=== PATIENT | male | born 1925 | race Caucasian/White ===

== ENCOUNTER 2016-11-27 14:54 | Inpatient (IN) | payer OTHER ==
[~2016-11-27] VITALS: Ht 180.3 cm; Wt 96.5 kg
[2016-11-27 17:00] LABS: MCH 30.5 PG (29.0-34.0); MCV 92.4 FL (86-99); MEAN PLAT.VOLUME 12.1 uM^3 (9.0-12.4); PLATELET COUNT 109 K/uL (156-360); RBC DIS.WIDTH-CV 14.5 % (11.8-14.6); RBC DIS.WIDTH-SD 49.1 % (39-53); RED BLOOD COUNT 4.33 M/uL (4.00-5.50); WHITE BLOOD COUNT 7.5 K/uL (4.1-10.2)
[2016-11-27 17:09] LABS: CHLORIDE 103 mEq/L (99-109); SODIUM 135 mEq/L (136-147)
[2016-11-27 17:11] LABS: GLUCOSE 154 mg/dL (70-99)
[2016-11-27 17:12] LABS: ANION GAP 9 MEQ/L (2-14)
[2016-11-27 17:15] LABS: GFR ESTIMATE (CALCULATED) > 59 mL/min/; UREA NITROGEN (BUN) 17 mg/dL (9-23)
[2016-11-27 17:20] LABS: TROP-I INTERPRETATION NEGATIVE; TROPONIN-I 0.02 ng/mL (0.0-0.30)
[2016-11-27 18:45] LABS: INFLUENZA A VIRAL ANTIGEN NEGATIVE; INFLUENZA B VIRAL ANTIGEN NEGATIVE
[2016-11-27 20:53] LABS: INTER. NORMALIZED RATIO 1.2; PROTHROMBIN TIME 12.8 SEC (10.2-12.9)
[2016-11-27 20:55] LABS: PTT 32.1 SEC (25-37)
[2016-11-27] MEDS ORDERED: DECADRON4 MG PO (21:49)
[2016-11-27] MEDS ORDERED: REVLIMID15 MG PO (21:50)
[2016-11-27] MEDS ORDERED: AMLODIPINE BESYL5 MG PO (21:51)
[2016-11-27] MEDS ORDERED: TAMSULOSIN HCL0.4 MG PO (21:52)
[2016-11-27] MEDS ORDERED: CLOPIDOGREL75 MG PO (21:52)
[2016-11-27] MEDS ORDERED: ALLOPURINOL100 MG PO (21:53)
[2016-11-27] MEDS ORDERED: ATORVASTATIN CA20 MG PO (21:53)
[2016-11-27] MEDS ORDERED: RELIEF MM (21:54)
[2016-11-27] MEDS ORDERED: FLONASE16 G1 BOTH NARES (21:54)
[2016-11-27] MEDS ORDERED: VELCADE3.5 MG IV (21:55)
[2016-11-28 01:05] LABS: TROP-I INTERPRETATION NEGATIVE; TROPONIN-I 0.03 ng/mL (0.0-0.30)
[2016-11-28 01:15] VITALS: BP 140/92
[2016-11-28 04:15] VITALS: BP 122/68
[2016-11-28 05:54] LABS: MCH 30.4 PG (29.0-34.0); MCHC 32.9 G/DL (30.0-36.0); MCV 92.6 FL (86-99); MEAN PLAT.VOLUME 12.2 uM^3 (9.0-12.4); PLATELET COUNT 84 K/uL (156-360); RBC DIS.WIDTH-CV 14.6 % (11.8-14.6); RBC DIS.WIDTH-SD 49.6 % (39-53); RED BLOOD COUNT 3.78 M/uL (4.00-5.50); WHITE BLOOD COUNT 6.2 K/uL (4.1-10.2)
[2016-11-28 06:09] LABS: ANION GAP 10 MEQ/L (2-14); CHLORIDE 107 MEQ/L (99-109); GFR ESTIMATE (CALCULATED) > 59 mL/min/; POTASSIUM 3.7 MEQ/L (3.7-5.4); SAMPLE HEMOLYSIS CHECK 0; SAMPLE ICTERIC CHECK 0; SAMPLE LIPEMIA CHECK 0; SODIUM 137 MEQ/L (136-147); UREA NITROGEN (BUN) 17 mg/dL (9-23)
[2016-11-28 06:18] LABS: TROP-I INTERPRETATION NEGATIVE; TROPONIN-I 0.06 ng/mL (0.0-0.30)
[2016-11-28 06:20] LABS: GLUCOSE 113 mg/dL (70-99)
[2016-11-28 07:15] VITALS: BP 124/77
[2016-11-28 10:16] LABS: INTER. NORMALIZED RATIO 1.1; PROTHROMBIN TIME 12.5 SEC (10.2-12.9)
[2016-11-28 10:26] LABS: PTT 54.9 SEC (25-37)
[2016-11-28 11:00] VITALS: BP 119/62
[2016-11-28 16:00] VITALS: BP 136/83
[2016-11-28 19:29] LABS: INTER. NORMALIZED RATIO 1.1; PROTHROMBIN TIME 11.9 SEC (10.2-12.9)
[2016-11-28 21:00] VITALS: BP 108/69
[2016-11-29] VITALS (7 sets, daily range): BP systolic 105–121; BP diastolic 54–74
[2016-11-29 05:11] LABS: EOSINOPHIL (%) 0.6 % (0-5); HEMATOCRIT 33.5 % (38.0-50.0); IMMATURE GRANULOCYTE (%) 1.3 % (0.0-0.7); IMMATURE GRANULOCYTE COUNT 0.1 K/uL; INSTRUMENT ABS NEUTROPHIL CT 4.1 K/uL; LYMPHOCYTE COUNT 0.5 K/uL (1.0-2.8); MCH 30.5 PG (29.0-34.0); MCHC 32.8 G/DL (30.0-36.0); MCV 92.8 FL (86-99); MEAN PLAT.VOLUME 11.9 uM^3 (9.0-12.4); MONOCYTE (%) 12.5 % (3-12); MONOCYTE COUNT 0.7 K/uL (0-0.8); NEUTROPHIL (%) 75.9 % (45-76); NEUTROPHIL COUNT 4.1 K/uL (1.8-6.4); PLATELET COUNT 98 K/uL (156-360); RBC DIS.WIDTH-CV 14.7 % (11.8-14.6); RED BLOOD COUNT 3.61 M/uL (4.00-5.50); WHITE BLOOD COUNT 5.4 K/uL (4.1-10.2)
[2016-11-29 05:48] LABS: ALKALINE PHOSPHATASE 46 IU/L (3-129); ANION GAP 9 MEQ/L (2-14); CHLORIDE 110 MEQ/L (99-109); GFR ESTIMATE (CALCULATED) > 59 mL/min/; GLUCOSE 111 mg/dL (70-99); SAMPLE HEMOLYSIS CHECK 0; SAMPLE ICTERIC CHECK 0; SAMPLE LIPEMIA CHECK 0; SODIUM 142 MEQ/L (136-147); UREA NITROGEN (BUN) 17 mg/dL (9-23)
[2016-11-30 05:13] VITALS: BP 97/65
[2016-11-30 05:27] LABS: EOSINOPHIL (%) 6.8 % (0-5); EOSINOPHIL COUNT 0.4 K/uL (0-0.3); IMMATURE GRANULOCYTE (%) 0.7 % (0.0-0.7); LYMPHOCYTE COUNT 0.7 K/uL (1.0-2.8); MCH 29.6 PG (29.0-34.0); MCV 92.3 FL (86-99); MEAN PLAT.VOLUME 11.6 uM^3 (9.0-12.4); MONOCYTE (%) 11.7 % (3-12); MONOCYTE COUNT 0.7 K/uL (0-0.8); NEUTROPHIL (%) 69.1 % (45-76); PLATELET COUNT 123 K/uL (156-360); RBC DIS.WIDTH-CV 14.9 % (11.8-14.6); RBC DIS.WIDTH-SD 51.4 % (39-53); RED BLOOD COUNT 3.79 M/uL (4.00-5.50); WHITE BLOOD COUNT 5.7 K/uL (4.1-10.2)
[2016-11-30 05:48] LABS: ALKALINE PHOSPHATASE 51 IU/L (3-129); ANION GAP 8 MEQ/L (2-14); CHLORIDE 107 MEQ/L (99-109); GFR ESTIMATE (CALCULATED) > 59 mL/min/; GLUCOSE 93 mg/dL (70-99); POTASSIUM 3.6 MEQ/L (3.7-5.4); SAMPLE HEMOLYSIS CHECK 0; SAMPLE ICTERIC CHECK 0; SAMPLE LIPEMIA CHECK 0; SODIUM 139 MEQ/L (136-147); UREA NITROGEN (BUN) 15 mg/dL (9-23)
[2016-11-30 07:54] VITALS: BP 120/70
[2016-11-30 08:09] VITALS: BP 109/58
[2016-11-30 11:35] VITALS: BP 129/68
[2016-11-30 12:19] VITALS: BP 167/78
[2016-11-30] MEDS ORDERED: XARELTO15 MG PO (12:35)
[2016-11-30] MEDS ORDERED: ADVAIR HFA120 INHALA IH (12:35)
[2016-11-30] MEDS ORDERED: VENTOLIN HFA18 GM IH (12:35)
[2016-11-30] MEDS ORDERED: TOPROL XL25 MG PO (12:35)
[2016-11-30] MEDS ORDERED: XARELTO20 MG PO (12:35)
[2016-11-30] MEDS ORDERED: CARDIZEM CD,CA240 MG PO (12:35)
== END 2016-11-30 16:15 | disposition home or self-care (01) | DRG 176 ==
LOC: EME 14:54 → 4EAST 22:26 → EDOF 22:26 → ENRESERV 22:27 → EDOF 23:10 → ENRESERV 23:48 → 4EAST 11-28 01:12
PROVIDERS: Emergency Medicine; Hospitalist
DX: I26.99 Other pulmonary embolism without acute cor pulmonale (principal); I82.542 Chronic embolism and thrombosis of left tibial vein; C34.12 Malignant neoplasm of upper lobe, left bronchus or lung; C90.00 Multiple myeloma not having achieved remission; J20.9 Acute bronchitis, unspecified; J21.9 Acute bronchiolitis, unspecified; T17.890A Other foreign object in other parts of respiratory tract causing asphyxiation, initial encounter; I48.91 Unspecified atrial fibrillation; I48.92 Unspecified atrial flutter; D69.6 Thrombocytopenia, unspecified; E87.2 Acidosis; R74.0 Nonspecific elevation of levels of transaminase and lactic acid dehydrogenase [LDH]; I45.10 Unspecified right bundle-branch block; I10 Essential (primary) hypertension; E78.5 Hyperlipidemia, unspecified; N40.0 Benign prostatic hyperplasia without lower urinary tract symptoms; M19.90 Unspecified osteoarthritis, unspecified site; E66.9 Obesity, unspecified; Z68.30 Body mass index [BMI] 30.0-30.9, adult; Z87.891 Personal history of nicotine dependence; Z85.118 Personal history of other malignant neoplasm of bronchus and lung; Z80.41 Family history of malignant neoplasm of ovary
CPT/HCPCS: 71020; 71275; 80048; 80053; 83605; 83880; 84443; 84484; 85025; 85027; 85610; 85730; 87040; 87502; 93005; 93306; 93970; 94640; 94640 76; 94799; 99202; 99281; 99285; J1956; J7030; J7050